=== PATIENT | female | born 1995 | race Caucasian/White ===

== ENCOUNTER 2020-02-19 01:38 | Emergency (ER) | payer OTHER ==
[~2020-02-19] VITALS: Ht 160 cm; Wt 98.9 kg
[2020-02-19 03:30] VITALS: BP 128/62
== END 2020-02-19 04:33 | disposition home or self-care (01) ==
LOC: ER 01:44
DX: J32.9 Chronic sinusitis, unspecified (principal); R51.9 Headache, unspecified

== ENCOUNTER 2023-08-20 23:06 | Emergency (ER) | payer OTHER ==
[~2023-08-20] VITALS: Ht 160 cm; Wt 98.0 kg
[2023-08-21 00:30] VITALS: BP 112/74; TEMP 98.7
[2023-08-21 01:00] VITALS: O2SAT 100
== END 2023-08-21 01:00 | disposition home or self-care (01) ==
LOC: ER 23:15
DX: Z71.1 Person with feared health complaint in whom no diagnosis is made (principal)